=== PATIENT | female | born 1965 | race Caucasian/White ===

== ENCOUNTER → 2018-04-14 | Outpatient (CLI) | payer OTHER ==
[2018-04-14 14:37] LABS: HEMATOCRIT 39.1 % (36.0-47.0); HEMOGLOBIN 13.5 g/dl (12.0-15.5); MEAN CORPUSCULAR HEMOGLOBIN 31.3 pg (27.0-33.0); MEAN CORPUSCULAR HGB CONC 34.5 g/dl (32.0-36.5); MEAN CORPUSCULAR VOLUME 90.7 fl (80.0-96.0); PLATELET COUNT, AUTOMATED 228 10^3/uL (150-450); RED BLOOD COUNT 4.31 10^6/uL (4.00-5.40); WHITE BLOOD COUNT 4.6 10^3/uL (4.0-10.0)
[2018-04-14 15:06] LABS: ANION GAP 5 MEQ/L (8-16); BLOOD UREA NITROGEN 17 MG/DL (7-18); CALCIUM LEVEL 8.9 MG/DL (8.5-10.1); CARBON DIOXIDE LEVEL 30 MEQ/L (21-32); CHLORIDE LEVEL 102 MEQ/L (98-107); GLOMERULAR FILTRATION RATE > 60.0 (>51); GLUCOSE, FASTING 114 MG/DL (70-100); POTASSIUM SERUM 4.1 MEQ/L (3.5-5.1); SODIUM LEVEL 137 MEQ/L (136-145)
== END ==
LOC: M LAB 14:09
DX: Z01.812 Encounter for preprocedural laboratory examination (principal); M20.11 Hallux valgus (acquired), right foot
CPT/HCPCS: 80048

== ENCOUNTER 2018-04-30 08:44 | Day surgery (SDC) | payer OTHER ==
[2018-04-30 09:31] LABS: BEDSIDE GLUCOSE 135 MG/DL (70-105)
[2018-04-30] MEDS ORDERED: PROPOFOL 200 MG/20 ML VIAL As Ordered ×2 (10:26→12:57)
[2018-04-30] MEDS ORDERED: LIDOCAINE 2% INJ 100 MG/5 ML SDV (FOR ANES.) As Ordered (10:26)
[2018-04-30] MEDS ORDERED: MIDAZOLAM INJ 2 MG/2 ML VIAL (J2250) As Ordered (10:26)
[2018-04-30] MEDS ORDERED: dexameTHASONE 4 MG/ML 1ML VIAL (J1100) As Ordered (10:26)
[2018-04-30] MEDS ORDERED: ONDANSETRON 4MG/2ML VIAL (J2405) As Ordered (10:26)
[2018-04-30] MEDS ORDERED: fentaNYL 100 MCG/2 ML INJECTION (J3010) As Ordered (10:26)
[2018-04-30] MEDS ORDERED: KETAMINE HCL 200 MG/20 ML VIAL As Ordered (12:21)
[2018-04-30] MEDS ORDERED: METOCLOPRAMIDE INJ 10MG/2ML VIAL (J2765) As Ordered (12:24)
[2018-04-30] MEDS: dexameTHASONE 4 MG/ML 1ML VIAL (J1100) As Ordered (12:36)
[2018-04-30] MEDS: LIDOCAINE 1% MDV 20ML VIAL As Ordered (12:37)
[2018-04-30] MEDS: BUPIVACAINE HCL 0.5% 10 ML VIAL As Ordered (12:38)
== END 2018-04-30 16:05 | disposition home or self-care (01) ==
LOC: M SDC 08:44
DX: M21.611 Bunion of right foot (principal); M21.6X1 Other acquired deformities of right foot; E11.9 Type 2 diabetes mellitus without complications; E78.4 Other hyperlipidemia; Z79.82 Long term (current) use of aspirin; Z79.899 Other long term (current) drug therapy; Z87.891 Personal history of nicotine dependence; F31.9 Bipolar disorder, unspecified
CPT/HCPCS: 28296

== ENCOUNTER → 2019-08-18 | Outpatient (REF) | payer OTHER ==
[~2019-08-18] MED LIST: ASPI81TA85 PO; ATOR1TAB21 PO; BIOT10008 PO; BIOT50004 PO; CITA10TA5 PO; CLON0.5T8 PO; FISH1000 PO; HYDR-3713 PO; MULTCAP PO
[2019-08-18 16:57] LABS: FOLLICLE STIMULATING HORMONE 120.3 mIU/mL; LUTEINIZING HORMONE 50.2 mIU/mL
== END ==
LOC: M LAB REF 16:19
PROVIDERS: ATTEND Internal Medicine
DX: N95.1 Menopausal and female climacteric states (principal); Z13.89 Encounter for screening for other disorder

== ENCOUNTER → 2022-05-07 | Outpatient (CLI) | payer OTHER ==
[~2022-05-07] MED LIST changes: -ASPI81TA85 PO; +ASPI81TA86 PO; -CITA10TA5 PO; +CITA10TA7 PO; +CLON0.5T2 PO; -CLON0.5T8 PO
== END ==
LOC: M RAD 08:15
PROVIDERS: ATTEND Internal Medicine
DX: Z82.49 Family history of ischemic heart disease and other diseases of the circulatory system (principal)

== ENCOUNTER → 2022-11-05 | Outpatient (CLI) | payer OTHER ==
[~2022-11-05] MED LIST changes: +ABIL1TAB11 PO; +ABIL1TAB13 PO; +ARIP1TAB4 PO; +CITA20TA7 PO
== END ==
LOC: M LABSMTC 11:08
PROVIDERS: ATTEND Anesthesiology
DX: Z01.812 Encounter for preprocedural laboratory examination (principal); Z20.822 Contact with and (suspected) exposure to COVID-19

== ENCOUNTER 2022-11-07 10:41 | Day surgery (SDC) | payer OTHER ==
[~2022-11-07] VITALS: Ht 160 cm; Wt 83.6 kg
[~2022-11-07 10:41] MED LIST changes: +BUPIVACAINE HCL 0.25% 30ML VIAL As Ordered ONE; +BUPIVACAINE HCL 0.5% 30ML VIAL As Ordered ONE; +LIDOCAINE 1% MDV 20ML VIAL As Ordered ONE; +LIDOCAINE 1% SDV 30ML VIAL As Ordered ONE; +ceFAZolin SOD 2 GM in IV 1 EA IV ONE
[2022-11-07] MEDS ORDERED: LR 1,000 ML IV SCH (11:00)
[2022-11-07] MEDS ORDERED: CLON1TAB8 (11:03)
[2022-11-07] MEDS ORDERED: LIDOCAINE 2% 100MG/5ML SDV (FOR ANES.) As Ordered ONE (11:26)
[2022-11-07] MEDS ORDERED: propofoL 200 MG/20 ML VIAL As Ordered ONE (11:26)
[2022-11-07] MEDS ORDERED: ONDANSETRON 4MG 2ML VIAL As Ordered ONE (11:26)
[2022-11-07] MEDS ORDERED: fentaNYL 100 MCG/2 ML INJECTION As Ordered ONE (11:27)
[2022-11-07] MEDS ORDERED: MIDAZOLAM INJ 2MG/2ML VIAL As Ordered ONE (11:27)
[2022-11-07] MEDS ORDERED: LIDOCAINE 1% SDV 30ML VIAL As Ordered ONE (11:44)
[2022-11-07] MEDS ORDERED: BUPIVACAINE HCL 0.5% 30ML VIAL As Ordered ONE (11:44)
[2022-11-07] MEDS ORDERED: ACETAMINOPHEN 1000MG 100ML IV BAG As Ordered ONE (11:46)
[2022-11-07 14:12] VITALS: BP 119/64
== END 2022-11-07 14:18 | disposition home or self-care (01) ==
LOC: M SDC 10:41
PROVIDERS: ATTEND Podiatrist Foot & Ankle Surgery
DX: M21.612 Bunion of left foot (principal); M20.12 Hallux valgus (acquired), left foot; M20.42 Other hammer toe(s) (acquired), left foot; E11.9 Type 2 diabetes mellitus without complications; E78.00 Pure hypercholesterolemia, unspecified; F41.9 Anxiety disorder, unspecified; F32.A Depression, unspecified; Z87.891 Personal history of nicotine dependence; Z91.030 Bee allergy status; Z79.899 Other long term (current) drug therapy
CPT/HCPCS: 28285; 28299; 88300; 88304; C1713; J0131; J0690; J1100; J2250; J2405; J3010; S0020

== ENCOUNTER 2023-04-10 11:33 | Inpatient (IN) | payer OTHER ==
[~2023-04-10] VITALS: Ht 160 cm; Wt 71.7 kg
[~2023-04-10 11:33] MED LIST changes: -BUPIVACAINE HCL 0.25% 30ML VIAL As Ordered ONE; -BUPIVACAINE HCL 0.5% 30ML VIAL As Ordered ONE; +CLON1TAB8 PO; -LIDOCAINE 1% MDV 20ML VIAL As Ordered ONE; -LIDOCAINE 1% SDV 30ML VIAL As Ordered ONE; -ceFAZolin SOD 2 GM in IV 1 EA IV ONE
[2023-04-10] MEDS ORDERED: SERT50TA29 PO (11:40)
[2023-04-10] MEDS ORDERED: MED REC IN PROGRESS XX SCH (13:10)
[2023-04-10] MEDS ORDERED: ZZZQ25CA PO (13:21)
[2023-04-10 13:23] LABS: HEMATOCRIT 41.4 % (36.0-47.0); HEMOGLOBIN 14.3 g/dl (12.0-15.5); MEAN CORPUSCULAR HEMOGLOBIN 30.2 pg (27.0-33.0); MEAN CORPUSCULAR HGB CONC 34.5 g/dl (32.0-36.5); MEAN CORPUSCULAR VOLUME 87.3 fl (80.0-96.0); PLATELET COUNT, AUTOMATED 238 10^3/uL (150-450); RED BLOOD COUNT 4.74 10^6/uL (4.00-5.40); WHITE BLOOD COUNT 4.6 10^3/uL (4.0-10.0)
[2023-04-10] MEDS ORDERED: HOME MED LIST COMPLETE! XX SCH (13:25)
[2023-04-10 13:47] LABS: ETHYL ALCOHOL (ETHANOL) < 0.003 % (0.000-0.010)
[2023-04-10 13:49] LABS: ACETAMINOPHEN LEVEL < 2.0 UG/ML (10.0-20.0); ALBUMIN 4.7 G/DL (3.2-5.2); ALKALINE PHOSPHATASE 61 U/L (46-116); ALT/SGPT 21 U/L (7.0-40); AST/SGOT 9 U/L (<34); BILIRUBIN,DIRECT 0.2 MG/DL (<0.4); BILIRUBIN,TOTAL 0.6 MG/DL (0.3-1.2); BLOOD UREA NITROGEN 8 MG/DL (9-23); CALCIUM LEVEL 10.3 MG/DL (8.5-10.1); CARBON DIOXIDE LEVEL 28 MMOL/L (20-31); CHLORIDE LEVEL 100 MMOL/L (98-107); CREATININE FOR GFR 0.64 MG/DL (0.55-1.30); GLOMERULAR FILTRATION RATE > 60.0 (>51); GLUCOSE, FASTING 116 MG/DL (60-100); POTASSIUM SERUM 4.2 MMOL/L (3.5-5.1); SALICYLATE LEVEL < 3.0 MG/DL (<30); SODIUM LEVEL 135 MMOL/L (136-145); TOTAL PROTEIN 6.9 G/DL (5.7-8.2)
[2023-04-10 13:51] LABS: THYROID STIMULATING HORMONE 1.839 uIU/ML (0.55-4.78)
[2023-04-10 15:04] LABS: AMPHETAMINES LEVEL URINE NEGATIVE (NEGATIVE); BARBITURATES URINE NEGATIVE (NEGATIVE); COCAINE METABOLITE URINE NEGATIVE (NEGATIVE)
[2023-04-10 15:05] LABS: BENZODIAZEPINES URINE POSITIVE (NEGATIVE); CANNABINOIDS URINE NEGATIVE (NEGATIVE); METHADONE URINE NEGATIVE (NEGATIVE); OPIATES URINE NEGATIVE (NEGATIVE); PHENCYCLIDINE URINE NEGATIVE (NEGATIVE)
[2023-04-10] MEDS ORDERED: IBUPROFEN 400MG TAB PO PRN (18:00)
[2023-04-10] MEDS ORDERED: diphenhydrAMINE 25MG CAP PO PRN (18:00)
[2023-04-10] MEDS ORDERED: ACETAMINOPHEN TAB 650MG DOSE (2X325MG) PO PRN (18:00)
[2023-04-10] MEDS ORDERED: MAALOX 30 ML SUSP *UDC PO PRN (18:00)
[2023-04-10] MEDS ORDERED: MOM 30ML SUSPENSION UDC PO PRN (18:00)
[2023-04-10 18:22] VITALS: BP 113/73; TEMP 97.5; O2SAT 100
[2023-04-10] MEDS: clonazePAM 1 MG TAB PO SCH (20:26)
[2023-04-10] MEDS: ATORVASTATIN 20 MG TAB PO SCH (20:26)
[2023-04-10] MEDS: ARIPiprazole 2 MG TAB PO SCH (20:27)
[2023-04-10] MEDS ORDERED: SERTRALINE HCL 50 MG TAB PO SCH (21:00)
[2023-04-10] MEDS: traZODone 50 MG TAB PO PRN (21:22)
[2023-04-11 06:19] VITALS: BP 109/63; TEMP 97.4; O2SAT 97
[2023-04-11] MEDS ORDERED: CitaloPRAM (CeleXA) 10 MG TABLET PO SCH (09:00)
[2023-04-11] MEDS ORDERED: PILL CUTTER 1 EACH XX PRN (15:55)
[2023-04-11 18:26] VITALS: BP 116/71; TEMP 96; O2SAT 98
[2023-04-11] MEDS: ARIPiprazole 2 MG TAB PO SCH (20:38)
[2023-04-11] MEDS: clonazePAM 1 MG TAB PO SCH (20:38)
[2023-04-11] MEDS: ATORVASTATIN 20 MG TAB PO SCH (20:38)
[2023-04-11] MEDS: traZODone 50 MG TAB PO PRN (20:38)
[2023-04-11] MEDS ORDERED: SERTRALINE HCL 25 MG TABLET PO SCH (21:00)
[2023-04-12 06:07] VITALS: BP 109/59; TEMP 97.9; O2SAT 98
[2023-04-12] MEDS ORDERED: CitaloPRAM (CeleXA) 10 MG TABLET PO SCH (09:00)
[2023-04-12] MEDS ORDERED: ATOR1TAB21 PO (09:16)
[2023-04-12] MEDS ORDERED: SERT25TA21 PO (09:16)
[2023-04-12] MEDS ORDERED: ABIL1TAB13 PO (09:16)
[2023-04-12] MEDS ORDERED: CLON1TAB8 PO (09:16)
== END 2023-04-12 11:19 | disposition home or self-care (01) | DRG 751 ==
LOC: M ED 11:33 → M ED INP 17:58 → M PSY 18:15
PROVIDERS: ADMIT Student in an Organized Health Care Education/Training Program; ATTEND Student in an Organized Health Care Education/Training Program
DX: F33.1 Major depressive disorder, recurrent, moderate (principal); F41.9 Anxiety disorder, unspecified; E78.5 Hyperlipidemia, unspecified; E83.52 Hypercalcemia; Z79.899 Other long term (current) drug therapy; Z20.822 Contact with and (suspected) exposure to COVID-19; Z91.030 Bee allergy status; Z81.8 Family history of other mental and behavioral disorders

== ENCOUNTER → 2023-09-24 | Outpatient (CLI) | payer OTHER ==
[~2023-09-24] MED LIST changes: -BIOT50004 PO; +BIOT5CAP8 PO; +SERT25TA21 PO; +SERT50TA29 PO; +ZZZQ25CA PO
[2023-09-24 08:02] LABS: BASO % 0.7 % (0.0-1.0); EOS # 0.3 10^3/uL (0.0-0.5); EOS % 4.7 % (0.0-3.0); HEMATOCRIT 39.7 % (36.0-47.0); HEMOGLOBIN 13.2 g/dl (12.0-15.5); LYMPH # 0.9 10^3/uL (1.5-5.0); MEAN CORPUSCULAR HEMOGLOBIN 29.7 pg (27.0-33.0); MEAN CORPUSCULAR HGB CONC 33.2 g/dl (32.0-36.5); MEAN CORPUSCULAR VOLUME 89.2 fl (80.0-96.0); MONO # 0.3 10^3/uL (0.0-0.8); MONO % 5.8 % (2.0-8.0); NEUTROPHILS # 4.1 10^3/uL (1.5-8.5); NEUTROPHILS % 72.4 % (36.0-66.0); PLATELET COUNT, AUTOMATED 294 10^3/uL (150-450); RED BLOOD COUNT 4.45 10^6/uL (4.00-5.40); WHITE BLOOD COUNT 5.7 10^3/uL (4.0-10.0)
[2023-09-24 08:18] LABS: ALBUMIN 4.1 G/DL (3.2-5.2); ALKALINE PHOSPHATASE 59 U/L (46-116); ALT/SGPT 24 U/L (7.0-40); AST/SGOT 13 U/L (<34); BILIRUBIN,TOTAL 0.4 MG/DL (0.3-1.2); BLOOD UREA NITROGEN 20 MG/DL (9-23); CALCIUM LEVEL 9.3 MG/DL (8.5-10.1); CARBON DIOXIDE LEVEL 29 MMOL/L (20-31); CHLORIDE LEVEL 107 MMOL/L (98-107); CREATININE FOR GFR 0.75 MG/DL (0.55-1.30); GLOMERULAR FILTRATION RATE > 60.0 (>51); GLUCOSE, FASTING 121 MG/DL (60-100); LITHIUM LEVEL 0.59 MMOL/L (1.0-1.20); POTASSIUM SERUM 4.2 MMOL/L (3.5-5.1); SODIUM LEVEL 138 MMOL/L (136-145); TOTAL PROTEIN 6.6 G/DL (5.7-8.2)
[2023-09-24 08:20] LABS: THYROID STIMULATING HORMONE 3.879 uIU/ML (0.55-4.78)
== END ==
LOC: M LAB 07:17
PROVIDERS: ATTEND Physician Assistant
DX: F31.9 Bipolar disorder, unspecified (principal)

== ENCOUNTER → 2025-01-01 | Outpatient (CLI) | payer OTHER ==
[~2025-01-01] MED LIST changes: +ANAS1TAB2 PO; +BUPR75TA5 PO; +METF500T13 PO; +REXU1TAB2 PO; +VENL150C43 PO
== END ==
LOC: M ONCR 12:56
PROVIDERS: ATTEND General Practice
DX: C50.211 Malignant neoplasm of upper-inner quadrant of right female breast (principal); Z79.811 Long term (current) use of aromatase inhibitors; Z79.84 Long term (current) use of oral hypoglycemic drugs; Z79.899 Other long term (current) drug therapy; Z91.030 Bee allergy status

== ENCOUNTER → 2025-01-25 | Outpatient (CLI) | payer OTHER | LOC: M WHC 12:31 | PROVIDERS: ATTEND Internal Medicine Hematology & Oncology | DX: C50.111 Malignant neoplasm of central portion of right female breast (principal); M81.0 Age-related osteoporosis without current pathological fracture ==

== ENCOUNTER → 2025-02-03 | Outpatient (RCR) | payer OTHER | LOC: M ONCR 01-26 08:01 | PROVIDERS: ATTEND General Practice | DX: Z51.0 Encounter for antineoplastic radiation therapy (principal); C50.211 Malignant neoplasm of upper-inner quadrant of right female breast ==